=== PATIENT | male | born 2000 | race Caucasian/White ===

== ENCOUNTER 2022-07-08 19:35 | Emergency (ER) | payer OTHER, SELFPAY ==
[2022-07-08 19:40] VITALS: BP 170/100; PULSE 65; RESP 18; TEMP 37.3; O2SAT 99; BMI 43.4
--- NOTE | 2022-07-08 19:56 | W.ED.WOUNDLC ---
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 He states happened just prior to arrival does have a 2 cm laceration denies any other injuries states pain is minimal currently unsure when his last tetanus was. Associated symptoms: Denies chills, fever(s), nausea or vomiting Review of Systems Const: Denies: fever(s), chills, body aches or change in appetite Eyes: Denies: blurry vision or eye discomfort ENMT: Denies: throat pain or dental pain Card: Denies: chest pain Resp: Denies: dyspnea GI: Denies: abdominal pain, nausea, vomiting or diarrhea : Denies: dysuria Musc: Denies: neck pain or back pain Skin/Breast: Denies: rash Neuro: Denies: headache(s) Psych: Denies: depression [place]/Lymph: Denies: easy bruising All/Imm: Denies: urticaria PFSH ED PFSH: Medical History (Updated 07/08/22 @ 20:08 by Sarika Brownlee MD) No pertinent past medical history Social History (Updated 07/08/22 @ 20:07 by Sarika Brownlee MD) Substance/Drug Use: never Physical Exam Const: COMMON NORMALS: no acute distress, patient oriented x3 and healthy appearing HENMT: COMMON NORMALS: normocephalic and atraumatic HEAD & SCALP: normocephalic and atraumatic Eye: COMMON NORMALS: conjunctivae normal CONJUNCTIVA: Yes conjunctivae normal Neck/C-Spine: COMMON NORMALS: full ROM and supple Chest: COMMONS NORMALS: normal inspection of the chest Resp: COMMON NORMALS: normal respiratory effort Cardio: COMMON NORMALS: regular rate and regular rhythm RATE: regular rate RHYTHM: regular rhythm GI: INSPECTION: Yes normal to inspection Extremity: COMMON NORMALS: full ROM Neuro: COMMON NORMALS: patient oriented x3, moves all extremities and no focal motor deficits Psych: COMMON NORMALS: mental status grossly normal, Normal thought process present and cooperative THOUGHT PROCESS: Normal thought process present Skin: COMMON NORMALS: no rashes or lesions noted NARRATIVE SKIN EXAM: 2 cm laceration to the dorsum of the base of the right thumb no tendon laceration is full range of motion. GENERAL SKIN EXAM: no rashes or lesions noted Procedures Laceration Laceration 1: Site: hand Side (If applicable): right Size (cm): 2 Description: linear Depth: simple, single layer Local Anesthetic: lidocaine 1% Amount of anesthesia used (mL): 5 Pre-repair: wound explored and irrigated extensively Skin layer closed with: nylon Size (cm): 5-0 Number of sutures: 3 Technique: simple, interrupted Course Vital Signs: Vital signs: Vital Signs Temperature 99.2 F 07/08/22 19:40 Pulse Rate 65 07/08/22 19:40 Respiratory Rate 18 07/08/22 19:40 Blood Pressure 170/100 07/08/22 19:40 Pulse Oximetry 99 07/08/22 19:40 Oxygen Delivery Me thod 07/08/22 19:40 MDM - Wound/Laceration Medical Decision Making Patient presents with right thumb laceration has no tendon involvement laceration was repaired with sutures he is return in 7 days for removal. He is stable for discharge. 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
[2022-07-08] MEDS: tetanus-dipt-pertussis 0.5 mL SDV IM (20:09)
[2022-07-08 20:43] VITALS: BP 151/79; PULSE 66; RESP 16; TEMP 36.8; O2SAT 99
--- NOTE | 2022-07-15 15:50 | PC.NURSE ---
pt presented to ed for removal of 3 stitches in right thumb. wound healing no signs of infection.
== END 2022-07-08 20:47 | disposition home or self-care (01) ==
PROVIDERS: Emergency Provider Emergency Medicine
DX: S61.011A Laceration without foreign body of right thumb without damage to nail, initial encounter (principal); W26.8XXA Contact with other sharp object(s), not elsewhere classified, initial encounter; Y99.0 Civilian activity done for income or pay; Z23 Encounter for immunization
CPT/HCPCS: 12001; 90471; 90715; 99283

== ENCOUNTER → 2022-09-11 16:40 | Outpatient (BNVA) | payer BC, SELFPAY | PROVIDERS: Visit Provider Emergency Medicine | DX: J02.9 Acute pharyngitis, unspecified (principal); R50.9 Fever, unspecified; J06.9 Acute upper respiratory infection, unspecified | CPT/HCPCS: 87071; 87400; 87880 ==